=== PATIENT | male | born 1980 | race African-American/Black ===

== ENCOUNTER 2018-03-18 19:20 | Emergency (ER) | payer BC, OTHER ==
[2018-03-18] MEDS ORDERED: Morphine 4 MG/ML Syringe ONE (19:43)
[2018-03-18] MEDS ORDERED: Sodium Chloride 0.9% 1,000 ML IV ONE (19:44)
[2018-03-18] MEDS ORDERED: Sodium Chloride 0.9% 10 ML Syringe FLUSH PRN (19:44)
[2018-03-18] MEDS ORDERED: Ondansetron 4 MG/2 ML SDV IVPUSH ONE (19:47)
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
[2018-03-18 20:29] LABS: CHLORIDE,CL 104 mmol/L (98-107); SODIUM,NA 141 mmol/L (136-145)
[2018-03-18 20:32] LABS: ANION GAP 12.8 mmol/L (10-20)
[2018-03-18] MEDS ORDERED: Iopamidol 612 MG/ML 100 ML Bottle IVPUSH ONE (21:21)
== END 2018-03-18 21:50 | disposition home or self-care (01) ==
LOC: VM.ED 19:20
DX: R51 Headache (principal); M54.2 Cervicalgia; R10.32 Left lower quadrant pain; M54.9 Dorsalgia, unspecified; M25.562 Pain in left knee; M25.561 Pain in right knee; R10.2 Pelvic and perineal pain; M25.551 Pain in right hip; V89.2XXA Person injured in unspecified motor-vehicle accident, traffic, initial encounter; V49.49XA Driver injured in collision with other motor vehicles in traffic accident, initial encounter
CPT/HCPCS: 70450; 71260; 72125; 72128; 72131; 73562; 74177; 80053; 81001; 82550; 84484; 85025; 96365; 96375; 99285; Q9967